=== PATIENT | male | born 1965 | race Caucasian/White ===

== ENCOUNTER 2018-05-18 12:59 | Emergency (ER) | payer OTHER ==
[2018-05-18] MEDS ORDERED: Sodium Chloride 0.9% 1000 ML 1,000 ML IV STA ×2 (13:35→14:56)
[2018-05-18] MEDS ORDERED: Zofran 4 MG/2 ML VIAL IV ONE (13:35)
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
[2018-05-18] MEDS ORDERED: Zofran 4 MG/2 ML VIAL ONE (13:50)
[2018-05-18] MEDS ORDERED: Sodium Chloride 0.9% 1000 ML 1,000 ML ONE ×2 (13:50→14:58)
[2018-05-18 13:53] LABS: BASOPHIL % 0.3 % (0.0-0.4); Basophil (Absolute #) 0.03 (0-0.4); Eosinophil (Absolute #) 0.99 (0-0.5); Granulocyte Absolute (ANC) 5.05 (1.4-6.9); Granulocytes % 56.5 % (36.0-66.0); Hematocrit 46.7 % (42-50); Hemoglobin 15.3 gm/dl (12.5-18.0); Lymphocytes % 23.4 % (24.0-44.0); Mean Cell Volume 94.9 fl (78-100); Mean Corpuscular Hemoglobin 31.1 pg (26-32); Mean Corpuscular Hgb Concent. 32.8 g/dl (32-36); Mean Platelet Volume 10.1 fl (6-9.5); Monocyte (Absolute #) 0.79 (0.0-1.3); Monocytes % 8.8 % (0.0-12.0); Platelet Count 230 K/mm3 (150-450); Red Blood Count 4.92 M/mm3 (4.1-5.6); Red Cell Distribution Width 14.2 % (11.5-14.0)
[2018-05-18 14:10] LABS: ALBUMIN 4.4 g/dL (3.5-5.0); ALKALINE PHOSPHATASE 82 U/L (38-126); AMYLASE 44 U/L (30-110); BLOOD UREA NITROGEN 13 mg/dL (9-20); CHLORIDE 106 mmol/L (98-107); Calcium 9.3 mg/dL (8.4-10.2); Carbon Dioxide 24 mmol/L (22-30); Creatinine 1 0.72 mg/dL (0.66-1.25); Glucose 99 mg/dL (74-106); LIPASE 41 U/L (23-300); Potassium 4.5 mmol/L (3.5-5.1); SGOT/AST 25 U/L (17-59); SGPT/ALT 29 U/L (0-50); SODIUM 139 mmol/L (137-145); Total Protein 7.5 g/dL (6.3-8.2)
[2018-05-18] MEDS ORDERED: TORAdol 30 mg Injection IV ONE (14:11)
[2018-05-18] MEDS ORDERED: TORAdol 30 mg Injection ONE (14:13)
[2018-05-18 14:49] LABS: INFLUENZA A NEGATIVE (NEGATIVE)
[2018-05-18 14:50] LABS: INFLUENZA B NEGATIVE (NEGATIVE); RESPIRATORY SYNCTIAL VIRUS NEGATIVE (Negative)
[2018-05-18 14:59] VITALS: O2SAT 98
[2018-05-18 15:29] LABS: Appearance CLEAR (CLEAR); Bilirubin NEGATIVE (NEGATIVE); Blood NEGATIVE Ery/ul (0-5); Glucose NEGATIVE (NEGATIVE); Ketones NEGATIVE (NEGATIVE); Nitrite NEGATIVE (NEGATIVE); Protein,Urine Dip NEGATIVE (Negative); Specific Gravity 1.005 (1.005-1.025); Urobilinogen NORMAL mg/dL (0-1)
[2018-05-18 15:33] LABS: Bacteria RARE /HPF (NEGATIVE); Epithelial Cells RARE /HPF (FEW); Leukocyte Esterase TRACE (NEGATIVE); RBC 0-2 /HPF (0-2)
[2018-05-18 15:55] VITALS: BP 138/76; PULSE 88
== END 2018-05-18 16:08 | disposition home or self-care (01) ==
LOC: ED 12:59
DX: E86.9 Volume depletion, unspecified (principal); R42 Dizziness and giddiness; R11.2 Nausea with vomiting, unspecified; J06.9 Acute upper respiratory infection, unspecified; F41.8 Other specified anxiety disorders; M79.1 Myalgia; R53.81 Other malaise
CPT/HCPCS: 36000; 36415; 80053; 81000; 82150; 83690; 85025; 87631; 87651; 93005; 96360; 96361; 96374; 96375; 99284; J1885; J2405

== ENCOUNTER 2022-08-14 22:24 | Emergency (ER) | payer MEDICAID, OTHER ==
[2022-08-14] MEDS ORDERED: Sodium Chloride 0.9% 1000 ML 1,000 ML IV STA (22:27)
[2022-08-14] MEDS ORDERED: TORAdol 30 mg Injection IV ONE (22:27)
[2022-08-14] MEDS ORDERED: SUBLIMAZE 100 MCG/2 ML IV ONE ×2 (22:27→22:49)
[2022-08-14] MEDS ORDERED: Zofran 4 MG/2 ML VIAL IV ONE (22:27)
[2022-08-14] MEDS ORDERED: Sodium Chloride 0.9% 1000 ML 1,000 ML ONE (22:32)
[2022-08-14] MEDS ORDERED: SUBLIMAZE 100 MCG/2 ML ONE ×2 (22:32→22:51)
[2022-08-14] MEDS ORDERED: Zofran 4 MG/2 ML VIAL ONE (22:32)
[2022-08-14] MEDS ORDERED: TORAdol 30 mg Injection ONE (22:32)
[2022-08-14 22:53] LABS: Absolute Neutrophil Ct (ANC) 11.83 x10^3/uL (1.4-6.9); Basophil (Absolute #) 0.09 x10^3/uL (0-0.4); Eosinophil (Absolute #) 0.31 x10^3/uL (0-0.5); Hematocrit 45.8 % (42-50); Lymphocyte (Absolute #) 1.47 x10^3/uL (1.0-4.6); Lymphocytes % 9.7 % (24.0-44.0); Mean Cell Volume 95.2 fL (78-100); Mean Corpuscular Hemoglobin 31.2 pg (26-32); Mean Corpuscular Hgb Concent. 32.8 g/dL (32-36); Mean Platelet Volume 9.9 fL (7.5-11.0); Monocytes % 9.2 % (0.0-12.0); Neutrophil % 78.1 % (36.0-66.0); Platelet Count 304 x10^3/uL (150-450); Red Blood Count 4.81 x10^6/uL (4.1-5.6); Red Cell Distribution Width 13.7 % (11.5-14.0); White Blood Count 15.2 x10^3/uL (4.0-10.5)
[2022-08-14 23:28] LABS: ALBUMIN 4.2 g/dL (3.5-5.0); ALKALINE PHOSPHATASE 91 U/L (38-126); AMYLASE 61 U/L (30-110); ANION GAP 10.5 MEQ/L (5-15); BLOOD UREA NITROGEN 23 mg/dL (9-20); CHLORIDE 105 mmol/L (98-107); Calcium 9.1 mg/dL (8.4-10.2); Carbon Dioxide 26 mmol/L (22-30); Creatinine 1 1.15 mg/dL (0.66-1.25); EST GLOMERULAR FILTRATION RATE > 60.0 ML/MIN; Glucose 106 mg/dL (74-106); LIPASE 68 U/L (23-300); Potassium 3.5 mmol/L (3.5-5.1); SGOT/AST 23 U/L (17-59); SGPT/ALT 18 U/L (0-50); SODIUM 138 mmol/L (137-145); Total Protein 7.3 g/dL (6.3-8.2)
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
[2022-08-15 00:44] LABS: Epithelial Cells RARE /HPF (FEW); Mucus SLIGHT /HPF (NEGATIVE)
[2022-08-15 00:45] LABS: Appearance SLIGHTLY CLOUDY (CLEAR); Bilirubin NEGATIVE (NEGATIVE); Dipstick done @ ? MAIN LAB; Glucose NEGATIVE (NEGATIVE); Ketones NEGATIVE (NEGATIVE); Nitrite NEGATIVE (NEGATIVE); Protein,Urine Dip NEGATIVE (Negative); RBC LARGE Ery/ul (0-5); Urobilinogen 0.2 mg/dL (0-1)
[2022-08-15 00:46] LABS: Bacteria NONE SEEN /HPF (NEGATIVE); RBC >101 /HPF (0-2); Urine Cultured Indicated? NO
[2022-08-15] MEDS ORDERED: KEFLEX 500 MG PO ONE (01:31)
[2022-08-15] MEDS ORDERED: ZOFRAN ODT 4 MG PO ONE (01:33)
[2022-08-15] MEDS ORDERED: Oxy-IR 5 MG PO ONE (01:34)
[2022-08-15] MEDS ORDERED: ZOFRAN ODT 4 MG ONE (01:40)
[2022-08-15] MEDS ORDERED: KEFLEX 500 MG ONE ×2 (01:40→01:45)
[2022-08-15 02:46] VITALS: BP 122/89; PULSE 79; O2SAT 96
--- NOTE | 2022-08-15 08:00 | XRAY ---
Indication: Right flank pain. Nausea, vomiting, and constipation. Multiple contiguous axial images obtained through the abdomen and pelvis without contrast using renal stone protocol. Comparison: None Lung bases demonstrates minimal dependent atelectasis. Heart not enlarged. Small hiatal hernia. 6 mm proximal right ureter calculus, approximately L2-L3 interspace level. There is moderate proximal hydroureter, hydronephrosis, renal edema, and perinephric stranding consistent with high-grade obstructive uropathy. Additional bilateral renal micro-calculi, largest left upper pole measuring 8 mm. Stomach is distended with food/fluid. Noncontrasted stomach and bowel loops appear nonobstructed. Mild diffuse fecal debris greatest in right hemicolon. Remaining liver, gallbladder, pancreas, spleen, adrenal glands, and bladder are unremarkable for noncontrast exam. Minimal aortic calcifications without AAA. Osseous structures intact with minimal/mild degenerative changes throughout the spine. Impression: 1. 6 mm proximal right ureter calculus producing obstructive uropathy as detailed. Additional bilateral renal micro-calculi. 2. Incidental small hiatal hernia, mild fecal stasis, minimal arteriosclerotic disease, and mild degenerative spondylosis. Comment: Preliminary interpretation made by [facility]. No critical discrepancy.
== END 2022-08-15 02:25 | disposition home or self-care (01) ==
LOC: ED 22:24
DX: N20.1 Calculus of ureter (principal); Z87.442 Personal history of urinary calculi; R10.9 Unspecified abdominal pain; R11.2 Nausea with vomiting, unspecified; Z72.0 Tobacco use; Z79.891 Long term (current) use of opiate analgesic; Z28.310 Unvaccinated for COVID-19
CPT/HCPCS: 36000; 36415; 74176; 80053; 81015; 82150; 83605; 83690; 85025; 96360; 96374; 96375; 96376; 99284; J1885; J2405; J3010; Q0162; A9270-GY

== ENCOUNTER 2022-08-30 12:53 | Emergency (ER) | payer MEDICAID ==
[2022-08-30] MEDS ORDERED: MOTRIN 600 MG PO ONE (13:27)
[2022-08-30] MEDS ORDERED: MOTRIN 600 MG ONE (13:38)
--- NOTE | 2022-08-30 13:47 | XRAY ---
Indication: 5th finger fishhook. Comparison: None 3 view right hand demonstrates remnant partial fishhook in distal 5th finger anteriorly. Mild 1st IP joint degenerative changes. No other bony, articular, or soft tissue abnormalities.
[2022-08-30 14:10] VITALS: BP 130/80; PULSE 90; O2SAT 99
[2022-08-30] MEDS ORDERED: Augmentin 875-125 Tablet PO ONE (14:11)
[2022-08-30] MEDS ORDERED: Augmentin 875-125 Tablet ONE (14:18)
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
--- NOTE | 2022-08-30 15:04 | XRAY ---
Indication: Foreign body removal. Comparison: Taken earlier in the day 3 view right hand demonstrates successful removal 5th finger fishhook with stable 1st IP degenerative changes. No other bony, articular, or soft tissue abnormalities.
== END 2022-08-30 15:00 | disposition home or self-care (01) ==
LOC: ED 12:53
DX: S61.246A Puncture wound with foreign body of right little finger without damage to nail, initial encounter (principal); W26.8XXA Contact with other sharp object(s), not elsewhere classified, initial encounter; W45.8XXA Other foreign body or object entering through skin, initial encounter; Y93.E9 Activity, other interior property and clothing maintenance; Y92.015 Private garage of single-family (private) house as the place of occurrence of the external cause; Z72.0 Tobacco use; Z28.310 Unvaccinated for COVID-19
CPT/HCPCS: 10120; 73130; 99283; A9270-GY